=== PATIENT | male | born 1945 | race Caucasian/White ===

== ENCOUNTER 2023-12-18 16:30 | Inpatient (IN) | payer OTHER, SELFPAY ==
[2023-12-18] VITALS (48 sets, daily range): BP systolic 135–170; BP diastolic 73–94; PULSE 62–90; TEMP 36.8–36.9; O2SAT 90–98; BMI 26.8; BMI 26.9
--- NOTE | 2023-12-18 16:50 | XR_ITS ---
The [address] [address] Patient Name: CALOS BEAULIEU MRN: [id number] date: 1945 Sex: M Assigned Patient Location: ER Current Patient Location: ER Accession/Order Number: [id number] Exam Date: 12/18/2023 17:07 Report Date: 12/18/2023 18:42 At the request of: UMESH ABDUL Procedure: XR chest 1V EXAM: XR chest 1V , 12/18/2023 HISTORY: confusion COMPARISON: None. TECHNIQUE: Portable upright AP x-ray of the chest. FINDINGS: Cardiac silhouette within normal limits. No hilar or mediastinal enlargement. The lungs and costophrenic angles are clear. No acute osseous findings. XR/XR chest 1V IMPRESSION: No acute cardiopulmonary findings. Electronically authenticated by: TREE PATTERSON Date: 12/18/2023 18:42
--- NOTE | 2023-12-18 16:50 | CT_ITS ---
The [address] [address] Patient Name: CALOS BEAULIEU MRN: [id number] date: 1945 Sex: M Assigned Patient Location: ED.MAIN Current Patient Location: ER Accession/Order Number: [id number] Exam Date: 12/18/2023 17:35 Report Date: 12/18/2023 18:56 At the request of: UMESH ABDUL Procedure: CT angio head EXAM: CT angio head HISTORY: Frontal headache with visual changes started yesterday. COMPARISON: Head CT on 12/18/2023. TECHNIQUE: Axial CT scans of the head were obtained with IV contrast administration. MPR and MIP images images and 3-D reconstruction images were generated. FINDINGS: No large vessel occlusion or significant intracranial stenosis. No aneurysm. Dural venous sinuses are not completely opacified on this CTA. CT/CT angio head IMPRESSION: No large vessel occlusion or significant intracranial stenosis. Electronically authenticated by: SHAKEEL HERNADEZ Date: 12/18/2023 18:56
--- NOTE | 2023-12-18 16:50 | ECG_ITS ---
The [facility] Test Date: 2023-12-18 Pat Name: CALOS BEAULIEU Department: Room: - Gender: Male [employer]: : 1945 Requested By: TIFFANY CROUCH Order Number: [id number] Reading MD: LAVERN YUNG Measurements Intervals [place] Rate: 81 P: 52 CO: 142 QRS: -32 QRSD: 88 T: 38 QT: 342 QTc: 379 Interpretive Statements 1100 Sinus rhythm [address] depression 7200 Abnormal left axis deviation 9130 borderline ECG No previous ECG available for comparison Electronically Signed On 12-18-2023 18:38:41 EDT by LAVERN YUNG
--- NOTE | 2023-12-18 16:50 | CT_ITS ---
The [place] [id number] Patient Name: CALOS BEAULIEU MRN: [id number] date: 1945 Sex: M Assigned Patient Location: ER Current Patient Location: ER Accession/Order Number: [id number] Exam Date: 12/18/2023 17:06 Report Date: 12/18/2023 18:49 At the request of: UMESH ABDUL Procedure: CT head/brain wo con EXAM: CT head/brain wo con HISTORY: Frontal headache with visual changes started yesterday. TECHNIQUE: Axial CT scans through the head were obtained without IV contrast administration. Dose reduction techniques were achieved by using: automated exposure control and/or adjustment of mA and/or kV according to patient size and/or use of an iterative reconstruction technique. COMPARISON: None. FINDINGS: Moderate periventricular and subcortical low attenuation in the cerebral hemispheres without associated mass effect. A small 2.3 cortical area of slightly decreased attenuation with loss of cortical medullary differentiation in the right parietal lobe is indicative of an acute infarct. The brainstem and the cerebellum appear normal. The ventricular system and cortical sulci are prominent, secondary to cerebral volume loss. No area of abnormal mass effect, edema, or intracranial hemorrhage is shown. The visualized orbits show no abnormal mass. The visualized paranasal sinuses show no air-fluid level. Mastoid air cells are clear. CT/CT head/brain wo con IMPRESSION: A small 2.3 cm acute cortical infarct in the right parietal lobe without hemorrhage. Moderate old microvascular ischemic change and age-related cerebral atrophy. Dr. Abdul was notified of the critical results by myself at 6:47 PM. Electronically authenticated by: SHAKEEL HERNADEZ Date: 12/18/2023 18:49
--- NOTE | 2023-12-18 16:53 | ED_ITS ---
HPI HPI - General Adult General Chief complaint: Headache Stated complaint: HEADACHE Time Seen by Provider: 12/18/23 16:33 History of Present Illness HPI narrative: Patient presents to ED complaining of headache. He said it started last night and when he woke up this morning it was worse than it was last night. He denies any trauma. He does report that he had a history of migraines but he has not had one in a long time. The states she has been trying to get him to come to the ER all day because he has been very confused on and off today. She said he was trying to find his wallet and even though it was right in front of him he could not find it. When I was talking to him in the room he said he was having trouble getting his cards into the ashtray and saying other nonsensical things very intermittently but most of the time was making sense and was completely alert and oriented. Patient states the headache is in the front denies any sensitivity to light or sound. He denies any fall or trauma. Time of last known well was 11 PM last night. That is when the patient went to bed, and the and he states that he went to bed completely fine. They said he was fine yesterday. He does not usually have any periods of confusion like he has had on and off today. He denies any fevers. Related Data Home Medications ?Medication ?Instructions ?Recorded ?Confirmed sulindac 200 mg tablet mg 12/18/23 Allergies Allergy/AdvReac Type Severity Reaction Status Date / Time No Known Drug Allergies Allergy Verified 12/18/23 16:35 Opioid HPI Opioid Management Most Recent Opioid Data: No Data to Display Review of Systems ROS Status of ROS 10 or more systems reviewed and unremark able except as noted in history and below Exam Narrative Exam Narrative: Time Seen: [] Vital Signs: [Per nurse's notes.] General: [Alert] Skin: [Warm, dry, no rash.] Head: [Normocephalic, atraumatic.] Neck: [Supple, trachea midline.] Eye: [Pupils are equal, round and reactive to light, extraocular movements are intact, normal conjunctiva.] Ears, nose, mouth and throat: oral mucosa moist. Cardiovascular: [Regular rate and rhythm, no murmur.] Respiratory: [Lungs are clear to auscultation, respirations are non-labored, breath sounds are equal.] Chest wall: [No tenderness, no deformity.] Gastrointestinal: [Soft, nontender, non distended, normal bowel sounds.] MSK: 5 out of 5 muscle strength x 4 extremities no calf pain or edema Lymphatics: [No lymphadenopathy.] Psychiatric: [Cooperative, appropriate mood & affect.] Neurological: [Alert and oriented to person, place, time, and situation, no focal neurological deficit observed.] Constitutional Vital Signs, click to edit/add: Last Vital Signs Temp 98.5 F 12/18/23 16:35 Pulse 84 12/18/23 19:00 Resp 29 H 12/18/23 19:00 BP 141/94 H 12/18/23 19:00 Pulse Ox 98 12/18/23 19:00 Course Vital Signs Vital signs: Vital Signs Temperature 98.5 F 12/18/23 16:35 Pulse Rate 74 12/18/23 16:35 Respiratory Rate 18 12/18/23 16:35 Blood Pressure 170/92 H 12/18/23 16:35 Pulse Oximetry 98 12/18/23 16:35 Temperature 98.5 F 12/18/23 16:35 Pulse Rate 84 12/18/23 19:00 Respiratory Rate 29 H 12/18/23 19:00 Blood Pressure 141/94 H 12/18/23 19:00 Pulse Oximetry 98 12/18/23 19:00 Medical Decision Making [facility] Narrative Medical decision making narrative: NIH stroke scale: Date/Time: []12/18/2023, 4:50 PM Level of consciousness: _ 0 Current month and age: _0 Open and close eyes/recruiter specialist release hand: _0 Best gaze: _0 Visual field testing: _0 Facial paresis: _0 Motor function left arm: _0 Motor function right arm: _0 Motor function left leg: _0 Motor function right leg: _0 Limb ataxia: _0 Sensory: _0 Best language0: _ Dysarthria: _0 Extinction and inattention: _0 Total Score: [] 0(severe deficit > 22) Notes: []No thrombolytics given as patient is out of the time window for any thrombolytic therapy And his symptoms are very minor and intermittent. I spoke to neurology from [facility] and they reviewed the images. I was told patient is able to stay here at [place] after they reviewed the images. Aspirin was ordered. I spoke to Majo and patient will be admitted to ICU for further monitoring. Patient and family are comfortable care plan for admission Differential Diagnosis Differential Diagnosis: Hemorrhagic stroke, stroke, migraine headache, electrolyte abnormality, Medical Records Medical records reviewed: Yes I reviewed the patient's medical records Lab Data Lab results reviewed: Yes I reviewed the patient's lab results Labs: Lab Results 12/18/23 12/18/23 Range/Units 16:43 18:26 WBC 9.9 (4.0-11.0) 10^3/uL RBC 5.05 (4.70-6.10) 10^6/uL Hgb 16.5 (14.0-18.0) g/dL Hct 46.9 (42.0-54.0) % MCV 92.9 (80.0-94.0) fL MCH 32.7 (25.9-34.0) pg MCHC 35.2 (29.9-35.2) g/dL RDW 11.5 (11.0-15.0) % Plt Count 198 (150-450) 10^3/uL MPV 10.9 (9.5-13.5) fL Neut % (Auto) 80.7 H (43.0-75.0) % Lymph % (Auto) 12.6 L (20.5-60.0) % Mcdonough % (Auto) 5.9 (1.7-12.0) % Eos % (Auto) 0.1 L (0.9-7.0) % Baso % (Auto) 0.4 (0.2-2.0) % Neut # (Auto) 8.0 H (1.4-6.5) 10^3/uL Lymph # (Auto) 1.3 (1.2-3.8) 10^3/uL Mcdonough # (Auto) 0.6 (0.3-0.8) 10^3/uL Eos # (Auto) 0.0 (0.0-0.7) 10^3/uL Baso # (Auto) 0.0 (0.0-0.1) 10^3/uL Abs Immat Gran (auto) 0.03 (0.00-0.03) 10^3/uL Imm/Tot Granulo (auto) 0.3 (0.0-0.5) % PT 10.8 (9.0-11.6) sec INR 1.02 Sodium 136 (136-145) mmol/L Potassium 4.2 (3.5-5.1) mmol/L Chloride 103 (98-107) mmol/L Carbon Dioxide 25.9 (21.0-32.0) mmol/L Anion Gap 11.3 BUN 12.0 (7.0-18.0) mg/dL Creatinine 0.87 (0.70-1.30) mg/dL Est GFR ( Amer) >60 (>=60) Est GFR (Non-Af Amer) >60 (>=60) BUN/Creatinine Ratio 13.8 Glucose 129 H (74-106) mg/dL Calcium 8.7 (8.5-10.1) mg/dL Total Bilirubin 0.9 (0.2-1.0) mg/dL AST 16 (15-37) U/L ALT 19 (16-63) U/L Alkaline Phosphatase 77 (46-116) U/L Troponin I High Sens 5.8 (4.0-76.1) pg/mL Total Protein 7.6 (6.4-8.2) g/dL Albumin 3.8 (3.4-5.0) g/dL Globulin 3.8 g/dL Albumin/Globulin Ratio 1.0 Urine Color Yellow (YELLOW) Urine Clarity Clear (CLEAR) Urine pH 7.0 (5.0-9.0) Ur Specific [place] 1.010 (1.005-1.025) Urine Protein Negative (NEG/TRACE) mg/dL Urine Glucose (UA) Negative (NEGATIVE) mg/dL Urine Ketones Trace A (NEGATIVE) mg/dL Urine Occult Blood Negative (NEGATIVE) Urine Nitrite Negative (NEGATIVE) Urine Bilirubin Negative (NEGATIVE) Urine Urobilinogen 0.2 (0.2-1.0) EU/dL Ur Leukocyte Esterase Negative (NEGATIVE) Imaging Data CT scan - head: Radiologist's impression: ITS Impressions Chest X-Ray 12/18/23 16:50 IMPRESSION: No acute cardiopulmonary findings. Electronically authenticated by: TREE PATTERSON Date: 12/18/2023 18:[address] 12/18/23 16:50 IMPRESSION: A small 2.3 cm acute cortical infarct in the right parietal lobe without hemorrhage. Moderate old microvascular ischemic change and age-related cerebral atrophy. Dr. Acevedo was notified of the critical results by myself at 6:47 PM. Electronically authenticated by: SHAKEEL HERNADEZ Date: 12/18/2023 18:49 Head CTA 12/18/23 16:50 IMPRESSION: No large vessel occlusion or significant intracranial stenosis. Electronically authenticated by: SHAKEEL HERNADEZ Date: 12/18/2023 18:56 ECG Data Attestation: I personally reviewed and interpreted this ECG as follows: Interpretation: EKG INTERPRETATION Time: []1645 Rate: []81 Rhythm: _ []Normal sinus rhythm ST segments: _ []No acute ST elevation or depression T waves: _ [] Ectopy: _ [] P wave/MS interval: _ [] QRS interval: _ [] QT interval: _ [] Comparison: _ [] Comparison EKG date: [] Performed by: [self] Critical Care Time Critical Care Time Critical Care Time: Yes Total Critical Care Time: 85 Attestation: Acute stroke Discharge Plan Discharge Chief Complaint: Headache Time of Disposition Decision: 19:15 Prescriptions / Home Meds: No Action sulindac 200 mg tablet Print Language: Lao
[2023-12-18 16:57] LABS: Basophils Percent Auto 0.4 % (0.2-2.0); Eosinophils Percent Auto 0.1 % (0.9-7.0); Hematocrit 46.9 % (42.0-54.0); Hemoglobin 16.5 g/dL (14.0-18.0); Immature Granulocytes Abs Auto 0.03 10^3/uL (0.00-0.03); Immature Granulocytes Pct Auto 0.3 % (0.0-0.5); Lymphocytes Absolute Auto 1.3 10^3/uL (1.2-3.8); Lymphocytes Percent Auto 12.6 % (20.5-60.0); Mean Corpuscular HGB Conc 35.2 g/dL (29.9-35.2); Mean Corpuscular Hemoglobin 32.7 pg (25.9-34.0); Mean Corpuscular Volume 92.9 fL (80.0-94.0); Mean Platelet Volume 10.9 fL (9.5-13.5); Monocytes Absolute Auto 0.6 10^3/uL (0.3-0.8); Monocytes Percent Auto 5.9 % (1.7-12.0); Neutrophils Percent Auto 80.7 % (43.0-75.0); Platelet Count 198 10^3/uL (150-450); Red Blood Count 5.05 10^6/uL (4.70-6.10); Red Cell Distribution Width 11.5 % (11.0-15.0); White Blood Count 9.9 10^3/uL (4.0-11.0)
[2023-12-18 17:11] LABS: INR 1.02; Prothrombin Time 10.8 sec (9.0-11.6)
[2023-12-18 17:16] LABS: Alanine Aminotransferase 19 U/L (16-63); Albumin Level 3.8 g/dL (3.4-5.0); Alkaline Phosphatase 77 U/L (46-116); Anion Gap 11.3; Aspartate Amino Transferase 16 U/L (15-37); BUN Creatinine Ratio 13.8; Bilirubin Total 0.9 mg/dL (0.2-1.0); Calcium 8.7 mg/dL (8.5-10.1); Carbon Dioxide 25.9 mmol/L (21.0-32.0); Chloride 103 mmol/L (98-107); Estimated GFR (African America >60 (>=60); Estimated GFR (Non-African Ame >60 (>=60); Globulin 3.8 g/dL; Glucose 129 mg/dL (74-106); Potassium 4.2 mmol/L (3.5-5.1); Sodium 136 mmol/L (136-145); Total Protein 7.6 g/dL (6.4-8.2); Troponin I High Sensitivity 5.8 pg/mL (4.0-76.1)
[2023-12-18 18:47] LABS: Bilirubin Urine NEGATIVE (NEGATIVE); Blood Urine NEGATIVE (NEGATIVE); Clarity Urine CLEAR (CLEAR); Color Urine YELLOW (YELLOW); Glucose Urine UA NEGATIVE (NEGATIVE); Ketones Urine TRACE mg/dL (NEGATIVE); Leukocyte Esterase Urine NEGATIVE (NEGATIVE); Nitrite Urine NEGATIVE (NEGATIVE); Protein Urine NEGATIVE (NEG/TRACE); Urobilinogen Urine 0.2 EU/dL (0.2-1.0)
[2023-12-18 18:48] LABS: Urine Microscopic Indicated NO
[2023-12-18] MEDS: ASPIRIN 81 MG TAB.CHEW 324 MG PO (18:59)
[2023-12-18] MEDS: ENOXAPARIN SODIUM 40 MG/0.4 ML SYRINGE SUBQ (21:44)
[2023-12-18] MEDS: ATORVASTATIN CALCIUM 40 MG TABLET PO (21:44)
[2023-12-18] MEDS: ACETAMINOPHEN 500 MG TABLET 1000 MG PO (21:45)
[2023-12-18] MEDS: OMEPRAZOLE 20 MG CAPSULE.DR PO (21:48)
[2023-12-18 21:57] LABS: Glucometer 150 mg/dL (74-106)
[2023-12-19] VITALS (74 sets, daily range): BP systolic 117–168; BP diastolic 71–89; PULSE 55–96; TEMP 36.6–36.8; O2SAT 91–95
[2023-12-19 06:43] LABS: Basophils Percent Auto 0.5 % (0.2-2.0); Eosinophils Absolute Auto 0.1 10^3/uL (0.0-0.7); Eosinophils Percent Auto 0.9 % (0.9-7.0); Hematocrit 42.7 % (42.0-54.0); Immature Granulocytes Abs Auto 0.02 10^3/uL (0.00-0.03); Immature Granulocytes Pct Auto 0.3 % (0.0-0.5); Lymphocytes Absolute Auto 1.6 10^3/uL (1.2-3.8); Lymphocytes Percent Auto 25.3 % (20.5-60.0); Mean Corpuscular HGB Conc 35.1 g/dL (29.9-35.2); Mean Corpuscular Hemoglobin 32.5 pg (25.9-34.0); Mean Corpuscular Volume 92.6 fL (80.0-94.0); Mean Platelet Volume 11.4 fL (9.5-13.5); Monocytes Absolute Auto 0.8 10^3/uL (0.3-0.8); Monocytes Percent Auto 12.6 % (1.7-12.0); Neutrophils Absolute Auto 3.9 10^3/uL (1.4-6.5); Neutrophils Percent Auto 60.4 % (43.0-75.0); Platelet Count 165 10^3/uL (150-450); Red Blood Count 4.61 10^6/uL (4.70-6.10); Red Cell Distribution Width 11.7 % (11.0-15.0); White Blood Count 6.5 10^3/uL (4.0-11.0)
[2023-12-19 07:18] LABS: Partial Thromboplastin Time 29.5 sec (22.3-36.2)
--- NOTE | 2023-12-19 08:22 | CA_ITS ---
Patient Name: CALOS BEAULIEU MR#: [id number] : 1945 Exam Date: 12/19/2023 Ordering Doctor: DR Ozzy Chavez . ECHOCARDIOGRAM REPORT PROCEDURE: CA ECHO DOPPLER COMPLETE INDICATIONS: Stroke COMPARISON: None. DESCRIPTION: COMPLETE ECHOCARDIOGRAM Real-time transthoracic echocardiography with 2D, M-mode, spectral and color flow Doppler performed. QUALITY: Technical quality was good. LEFT VENTRICLE: Normal chamber size. Moderate concentric left ventricular hypertrophy. Global left ventricular systolic function is normal. LV EF: Estimated left ventricular ejection fraction is 60%. DIASTOLIC: Diastolic function is indeterminate. ATRIAL SEPTUM: Agitated saline contrast does not reveal an intra-cardiac shunt. LEFT ATRIUM: Normal chamber size. RIGHT ATRIUM: Mild dilatation. RIGHT VENTRICLE: Normal chamber size. Normal right ventricular systolic function. TRICUSPID VALVE: Normal mobility and thickness. No stenosis with trivial regurgitation. Mild pulmonary hypertension. RVSP 35 mmHg. MITRAL VALVE: Normal mobility and thickness. No evidence of mitral valve stenosis. There is no mitral annular calcification. Trivial mitral regurgitation. AORTIC VALVE: Normal trileaflet appearance. No visible sclerosis. Normal leaflet mobility. No evidence of aortic valve stenosis. No aortic regurgitation. AORTIC ROOT: Normal diameter and appearance. PULMONIC VALVE: Normal thickness and mobility. No stenosis. Trivial regurgitation. PERICARDIUM: No evidence of pericardial effusion. IVC: Collapses with inspirations. Normal size. PLEURA: CONCLUSION: 1. Moderate concentric left ventricular hypertrophy with normal systolic function. LVEF is 60%. 2. Normal right ventricular size and systolic function. 3. No significant valvular dysfunction. 4. Mildly elevated right-sided pressures. 5. No evidence of intracardiac shunt by agitated saline injection. Adult Echocardiography Procedure Report Left Ventricle LVEDD (3.7 - 5.6 cm): 4.74 cm LVESD (2.2 - 4.0 cm): 3.15 cm LVIVS thickness (0.6 - 1.2 cm): 1.38 cm LVPW thickness (0.5 - 1.0 cm): 1.35 cm e': 0.10 m/s E - e': 5.96 LVOT Max Gradient: 3.52 mm[Hg] LVOT Area (cm2): 0.94 m/s Peak Velocity (LVOT): 0.94 m/s Mean Velocity (LVOT): 0.65 m/s LVOT Diameter 2.36 cm Left Ventricular Ejection Fraction: 60 % Left Atrium LA Volume Index (2D A2C): 29.30 ml/m2 Left Atrium Systolic Dimension: 4.15 cm Mitral Valve MV E to A Ratio: 0.69 Mitral Valve A-Wave Peak Velocity: 0.82 m/s Mitral Valve E-Wave Peak Velocity: 0.57 m/s Right Ventricle RV Internal Diastolic Dimension: 3.81 cm Aorta AO Root Diam: 3.03 cm Ascending Ao Diam: 2.82 cm Aortic Valve AoV Area (Peak Jamie): 2.68 cm2, 2.68 cm2 AoV Area (VTI): 3.14 cm2, 3.14 cm2 Peak Velocity(Antegrade Flow): 1.53 m/s Peak Gradient(Antegrade Flow): 9.36 mm[Hg] Mean Velocity(Antegrade Flow): 0.95 m/s Mean Gradient(Antegrade Flow): 4.30 mm[Hg] Velocity Time Integral: 27.23 cm Tricuspid Valve Peak Velocity (Regurgitant Flow): 2.61 m/s, 2.80 m/s Pulmonic Valve Mean Gradient: 2.64 mm[Hg] Mean Velocity: 0.79 m/s Peak Velocity: 1.02 m/s, 0.84 m/s Peak Gradient: 2.81 mm[Hg], 4.20 mm[Hg] Right Atrium Right Atrium Systolic Pressure: 40.47 ml, 40.47 ml Dictated by: Lonnie Negro M.D. on 12/19/2023 at 17:56 Approved by: Lonnie Negro M.D. on 12/19/2023 at 17:59
--- NOTE | 2023-12-19 08:22 | US_ITS ---
[address] [address] Patient Name: CALOS BEAULIEU MRN: [id number] date: 1945 Sex: M Assigned Patient Location: ICU Current Patient Location: ICU Accession/Order Number: [id number] Exam Date: 12/19/2023 08:23 Report Date: 12/19/2023 09:48 At the request of: JOSE CHAHAL Procedure: US carotid duplex BI EXAMINATION: US carotid duplex BI HISTORY: Stroke COMPARISON: No relevant comparison available. TECHNIQUE: Duplex Doppler ultrasound analysis of carotid and vertebral arteries. . Bilateral carotid arterial duplex examination was performed using B-mode, color flow and spectral analysis. Carotid stenosis is reported according to validated velocity parameters, similar to NASCET criteria. FINDINGS: RIGHT CAROTID ARTERY mild atherosclerotic plaque Subclavian: 147.63 cm/s / 0 cm/s CCA: Prox: 125.90 cm/s / 15.56 cm/s Mid: 98.30 cm/s / 15.56 cm/s Distal: 110.12 cm/s / 15.56 cm/s BULB: 78.56 cm/s / 15.55 cm/s ICA: Prox: 104.85 cm/s / 19.22 cm/s Mid: 111.31 cm/s / 19.22 cm/s Distal: 149.61 cm/s / 17.54 cm/s ECA: 104.22 cm/s / 3.74 cm/s VERTEBRAL: 72.63 cm/s / 15.55 cm/s, antegrade ICA/CCA ratio: 1.4 LEFT CAROTID ARTERY mild atherosclerotic plaque Subclavian: 137 cm/s / 11 cm/s CCA: Prox: 108.96 cm/s / 18.35 cm/s Mid: 111.23 cm/s / 18.35 cm/s Distal: 94.92 cm/s / 18.33 cm/s BULB: 74.15 cm/s / 14.38 cm/s ICA: Prox: 55.92 cm/s / 10.88 cm/s Mid: 77.89 cm/s / 19.67 cm/s Distal: 80.09 cm/s / 14.17 cm/s ECA: 69.08 cm/s / 6.48 cm/s VERTEBRAL: 65.79 cm/s / 8.68 cm/s, antegrade ICA/CCA ratio: 0.8 US/US carotid duplex BI IMPRESSION: 0-49% flow stenosis, bilateral internal carotid arteries Spectral Doppler US Thresholds (Reference: Flip EG, et al. Radiology 2000; 214:247-252) Stenosis (%) PSV (cm/sec) VICA/VCCA 0-49 <150 <2.5 50-69 150-225 2.5-4.0 >70 >225 >4.0 Electronically authenticated by: JARON AUGUSTE Date: 12/19/2023 09:48
--- NOTE | 2023-12-19 08:22 | MR_ITS ---
The [address] [address] Patient Name: CALOS BEAULIEU MRN: [id number] date: 1945 Sex: M Assigned Patient Location: ICU Current Patient Location: ICU Accession/Order Number: [id number] Exam Date: 12/19/2023 10:45 Report Date: 12/19/2023 11:33 At the request of: JOSE CHAHAL Procedure: MR head/brain wo con EXAM: MR head/brain wo con HISTORY: Stroke COMPARISON: CT head 12/18/2023. TECHNIQUE: Multiplanar multisequence MR imaging of the brain was performed without intravenous contrast. FINDINGS: Calvarium/skull base: No focal marrow replacing lesion suggestive of neoplasm. Orbits: Bilateral kw[place]luk ocular lens replacements. Paranasal sinuses: Imaged portions clear Brain: The previously identified area of hypodensity with loss of beatty-white differentiation involving the high posterior right parietal lobe corresponds to area of restricted diffusion with additional more punctate foci of restricted diffusion involving the posterior centrum semiovale white matter and cortical margin along the more posterior right parietal lobe. An additional punctate focus of restricted diffusion involving the cortical margin along the anterior aspect of the right precentral gyrus. There is mild associated T2 FLAIR hyperintensity. Tiny area of remote cortical infarct involving the right middle frontal gyrus. Moderate T2 FLAIR signal hyperintensities are present involving the supratentorial white matter likely relating to sequela small vessel disease. Mild to moderate parenchymal volume loss. No mass effect, hemorrhage, or hydrocephalus. Grossly normal flow-related signal in the major intracranial arteries and dural sinuses. MR/MR head/brain wo con IMPRESSION: 1. Acute infarct involving the right MCA distribution with the largest area of involvement along the cortical margin of the right parietal lobe corresponding area of hypodensity in recent CT. Punctate focus of involvement along the anterior cortical margin of the right precentral gyrus. 2. Additional small areas of remote infarct involving the supratentorial brain with superimposed moderate supratentorial white matter change which most commonly relates to sequela small vessel disease. Report was submitted to the clinical operation support team for expedited review by the provider. Electronically authenticated by: JERRI RIDDLE Date: 12/19/2023 11:33
[2023-12-19] MEDS: ACETAMINOPHEN 500 MG TABLET 1000 MG PO ×2 (08:45→17:21)
[2023-12-19] MEDS: OMEPRAZOLE 20 MG CAPSULE.DR PO (08:45)
[2023-12-19] MEDS: ASPIRIN 81 MG TABLET.DR PO (08:46)
[2023-12-19 09:52] LABS: Alanine Aminotransferase 16 U/L (16-63); Albumin Globulin Ratio 0.9; Albumin Level 3.2 g/dL (3.4-5.0); Alkaline Phosphatase 68 U/L (46-116); Anion Gap 11.6; Aspartate Amino Transferase 14 U/L (15-37); BUN Creatinine Ratio 12.3; C Reactive Protein 0.65 mg/dL (<=0.50); Calcium 8.3 mg/dL (8.5-10.1); Carbon Dioxide 25.3 mmol/L (21.0-32.0); Chloride 104 mmol/L (98-107); Chol HDL Ratio 5.1; Cholesterol 182 mg/dL (<=200); Estimated GFR (African America >60 (>=60); Estimated GFR (Non-African Ame >60 (>=60); Globulin 3.5 g/dL; Glucose 116 mg/dL (74-106); HDL Cholesterol 36 mg/dL (40-60); Magnesium 2.1 mg/dL (1.8-2.4); Potassium 3.9 mmol/L (3.5-5.1); Sodium 137 mmol/L (136-145); Total Protein 6.7 g/dL (6.4-8.2); Triglycerides 155 mg/dL (<=150); Troponin I High Sensitivity 5.6 pg/mL (4.0-76.1)
--- NOTE | 2023-12-19 10:34 | PM.HP ---
HPI H&P: HPI History of Present Illness Chief complaint: HEADACHE, STROKE Narrative: 78 y/o male to ER with a severe REED. REED started night prior and more intense in am. As day progressed patient's noticed confusion off and on. REED persisted and to ER. Labs and UA normal. Chest x-ray normal. CT head showed acute infarct in parietal lobe. CTA without significant stenosis. ER discussed with neurology who recommended admission and work up. Opioid HPI Opioid Management Most Recent Pain and Opioid Data: Last Pain Scale 10 12/19/23 08:45 Last Pain Assessment 12/19/23 10:00 Last MAR Pain Assessment 12/19/23 08:45 Last ORT Total Score 0 12/18/23 21:01 Last ORT Risk Category Low Risk 12/18/23 21:01 Review of Systems ROS Constitutional Denies: fever, chills or fatigue Cardiovascular Denies: chest pain, palpitations or edema Respiratory Denies: shortness of breath, cough or wheezing Gastrointestinal Denies: abdominal pain, nausea, vomiting or diarrhea Genitourinary Denies: painful urination Neurological Reports: headache and confusion PFSH PFSH Medical History (Updated 12/19/23 @ 08:09 by Ozzy Chavez MD) Stroke ?I63.9 - Cerebral infarction, unspecified (ICD-10) Rotator cuff insufficiency of right shoulder ?M25.311 - Other instability, right shoulder (ICD-10) Surgical History (Updated 12/18/23 @ 21:35 by Erica Uriarte) H/O knee surgery ?Z98.890 - Other specified postprocedural states (ICD-10) H/O shoulder surgery ?Z98.890 - Other specified postprocedural states (ICD-10) Social History (Updated 12/18/23 @ 21:37 by Erica Uriarte) Within the past year, how often did you have a drink containing alcohol: 2-4 times a month Within the past year, how often did you have six or more drinks on one occasion: never Smoking status: Never smoker Non-prescribed substance use: denies use Highest level of school completed/degree received: 9th grade Are you now , , , , never or living with a partner: Little interest or pleasure in doing things: not at all Feeling down, depressed, or hopeless: not at all Feel stressed/tense/nervous/anxious/difficulty sleeping: not at all Do you think of yourself as: straight/heterosexual Gender Identity: male Meds Home Medications and Allergies Home Medications ?Medication ?Instructions ?Recorded ?Confirmed ?Type sulindac 200 mg tablet 200 mg PO BID PRN pain 12/18/23 12/19/23 History tamsulosin 0.4 mg capsule 0.4 mg PO .QHS 12/19/23 History Allergies Allergy/AdvReac Type Severity Reaction Status Date / Time No Known Drug Allergies Allergy Verified 12/18/23 16:35 Exam Constitutional Vital Signs, click to edit/add: Last Vital Signs Temp 97.8 F 12/19/23 05:10 Pulse 70 12/19/23 10:00 Resp 17 12/19/23 07:08 BP 143/89 H 12/19/23 07:17 Pulse Ox 95 12/19/23 05:10 O2 Del Method Room Air 12/18/23 21:01 Documenting provider has reviewed patient's vital signs: yes Common normals: no apparent distress, oriented x3 and alert HENMT Common normals: normocephalic Eye Common normals: PERRL and EOMs intact bilaterally Respiratory Common normals: normal respiratory effort and clear to auscultation bilaterally Cardio Common normals: regular rate, regular rhythm, no gallops, no murmurs and no rub GI Common normals: Normal to inspection, nondistended, normoactive bowel sounds present and non-tender Extremity Common normals: no pedal edema Neuro Common normals: CN's II-XII intact bilaterally, moves all extremities, no focal motor deficits and gait normal Motor exam: strength 5/5 throughout Results Labs Labs: Short CBC 12/18/23 12/19/23 Range/Units 16:43 05:45 WBC 9.9 6.5 (4.0-11.0) 10^3/uL Hgb 16.5 15.0 (14.0-18.0) g/dL Hct 46.9 42.7 (42.0-54.0) % Plt Count 198 165 (150-450) 10^3/uL BMP 12/18/23 12/19/23 16:43 05:45 Sodium 136 137 Potassium 4.2 3.9 Chloride 103 104 Carbon Dioxide 25.9 25.3 BUN 12.0 10.0 Creatinine 0.87 0.81 Glucose 129 H 116 H Calcium 8.7 8.3 L Liver Function 12/18/23 12/19/23 Range/Units 16:43 05:45 Total Bilirubin 0.9 1.0 (0.2-1.0) mg/dL AST 16 14 L (15-37) U/L ALT 19 16 (16-63) U/L Alkaline Phosphatase 77 68 (46-116) U/L Albumin 3.8 3.2 L (3.4-5.0) g/dL Urine 12/18/23 Range/Units 18:26 Urine Color Yellow (YELLOW) Urine Clarity Clear (CLEAR) Urine pH 7.0 (5.0-9.0) Ur Specific [place] 1.010 (1.005-1.025) Urine Protein Negative (NEG/TRACE) mg/dL Urine Glucose (UA) Negative (NEGATIVE) mg/dL Assessment and Plan Assessment and Plan (1) Infarction of parietal lobe: (2) Benign essential hypertension: (3) High cholesterol: Plan Acute stroke on CT and MRI ordered. Carotid US without stenosis. Echo ordered with agitated saline. Added lipitor and aspirin. Will have tele-neurology consult after MRI results available. Consult speech, PT, and OT. Patient lucid at time of exam but nursing reports episodes of confusion off and on this am.
--- NOTE | 2023-12-19 10:41 | SWNOTE1 ---
SW met with pt to discuss dc needs. Pt was sitting in chair with towel on his head. Pt voiced his headache seems to be getting a little better. Pt live at home with his . 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 Pt does not use any DME at home currently, but has a walker if needed. Pt waiting to get an MRI completed and also to work with PT/OT. SW to check therapy notes to determine dc needs.
--- NOTE | 2023-12-19 10:41 | CM.NOTE ---
10:[address] Chavez discussed labs, Carotid US results and plan for MRI today and Pt/OT evals and neurology consult. Pawel verbalized understanding. 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 No plans for discharge today.
--- NOTE | 2023-12-19 10:52 | SWNOTE1 ---
Important Message from Medicare reviewed and discussed with patient. Pt. verbalized understanding and signed the form. Original given to patient and copy placed in patient?s chart.
--- NOTE | 2023-12-19 13:43 | SWNOTE1 ---
SW checked therapy and pt did well, no HH or SNF recommended.
[2023-12-19] MEDS: ATORVASTATIN CALCIUM 40 MG TABLET PO (21:31)
[2023-12-19] MEDS: ENOXAPARIN SODIUM 40 MG/0.4 ML SYRINGE SUBQ (21:31)
[2023-12-20] VITALS (7 sets, daily range): BP systolic 163; BP diastolic 81; PULSE 57–78; TEMP 36.7; O2SAT 92–94
[2023-12-20 06:22] LABS: Basophils Percent Auto 0.5 % (0.2-2.0); Eosinophils Absolute Auto 0.1 10^3/uL (0.0-0.7); Hematocrit 44.6 % (42.0-54.0); Hemoglobin 15.6 g/dL (14.0-18.0); Immature Granulocytes Abs Auto 0.01 10^3/uL (0.00-0.03); Immature Granulocytes Pct Auto 0.2 % (0.0-0.5); Lymphocytes Absolute Auto 1.6 10^3/uL (1.2-3.8); Lymphocytes Percent Auto 27.2 % (20.5-60.0); Mean Corpuscular Hemoglobin 32.4 pg (25.9-34.0); Mean Corpuscular Volume 92.7 fL (80.0-94.0); Mean Platelet Volume 11.2 fL (9.5-13.5); Monocytes Absolute Auto 0.7 10^3/uL (0.3-0.8); Monocytes Percent Auto 11.4 % (1.7-12.0); Neutrophils Absolute Auto 3.6 10^3/uL (1.4-6.5); Neutrophils Percent Auto 59.7 % (43.0-75.0); Platelet Count 171 10^3/uL (150-450); Red Blood Count 4.81 10^6/uL (4.70-6.10); Red Cell Distribution Width 11.5 % (11.0-15.0)
[2023-12-20 06:27] LABS: Anion Gap 7.7; Calcium 8.4 mg/dL (8.5-10.1); Carbon Dioxide 27.1 mmol/L (21.0-32.0); Chloride 104 mmol/L (98-107); Estimated GFR (African America >60 (>=60); Estimated GFR (Non-African Ame >60 (>=60); Glucose 108 mg/dL (74-106); Potassium 3.8 mmol/L (3.5-5.1); Sodium 135 mmol/L (136-145)
[2023-12-20 06:37] LABS: Estimated Average Glucose 117 mg/dL; Glycohemoglobin A1C 5.7 % (4.5-6.2)
[2023-12-20] MEDS: ASPIRIN 81 MG TABLET.DR PO (08:40)
[2023-12-20] MEDS: OMEPRAZOLE 20 MG CAPSULE.DR PO (08:40)
--- NOTE | 2023-12-20 11:16 | P.DS_ITS ---
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 78 y/o male to ER with a severe REED. REED started night prior and more intense in am. As day progressed patient's noticed confusion off and on. REED persisted and to ER. Labs and UA normal. Chest x-ray normal. CT head showed acute infarct in parietal lobe. CTA without significant stenosis. ER discussed with neurology who recommended admission and work up. Hospital course: Started lipitor and aspirin. Evaluated by PT/OT and speech. MRI showed CVA in right MCA distribution. Carotids negative for stenosis. Echo showed LVH but normal EF and no intracardiac shunt. A1C 5.7 and prediabetes. Tele-neurology recommended monitor and will send to patient. Recommend outpatient speech therapy and PCP will need to arrange. Discharged home in stable condition. Stop pravachol and start lipitor. Continue aspirin and other medication as directed. Follow up with PCP in 1-2 weeks. Time Spent with Patient Time attestation: Total time spent providing and/or coordinating discharge services: Time spent: greater than 30 minutes Exam Constitutional Vital Signs, click to edit/add: Last Vital Signs Temp 98.1 F 12/20/23 06:00 Pulse 78 12/20/23 10:00 Resp 16 12/20/23 08:00 BP 163/81 H 12/20/23 06:00 Pulse Ox 94 L 12/20/23 10:50 O2 Del Method Room Air 12/20/23 10:50 Documenting provider has reviewed patient's vital signs: yes Common normals: no apparent distress, oriented x3 and alert HENMT Common normals: normocephalic Eye Common normals: PERRL and EOMs intact bilaterally Respiratory Common normals: normal respiratory effort and clear to auscultation bilaterally Cardio Common normals: regular rate, regular rhythm, no gallops, no murmurs and no rub GI Common normals: Normal to inspection, nondistended, normoactive bowel sounds present and non-tender Extremity Common normals: no pedal edema DS: Data Data Completed and Pending Labs on day of discharge: Labs from last 24 hours 12/20/23 05:36 WBC 6.0 RBC 4.81 Hgb 15.6 Hct 44.6 MCV 92.7 MCH 32.4 MCHC 35.0 RDW 11.5 Plt Count 171 MPV 11.2 Neut % (Auto) 59.7 Lymph % (Auto) 27.2 [place] % (Auto) 11.4 Eos % (Auto) 1.0 Baso % (Auto) 0.5 Neut # (Auto) 3.6 Lymph # (Auto) 1.6 [place] # (Auto) 0.7 Eos # (Auto) 0.1 Baso # (Auto) 0.0 Abs Immat Gran (auto) 0.01 Imm/Tot Granulo (auto) 0.2 Sodium 135 L Potassium 3.8 Chloride 104 Carbon Dioxide 27.1 Anion Gap 7.7 BUN 12.0 Creatinine 0.80 Est GFR ( Amer) >60 Est GFR (Non-Af Amer) >60 BUN/Creatinine Ratio 15.0 Glucose 108 H Estimat Average Glucose 117 Hemoglobin A1c 5.7 Calcium 8.4 L Discharge Plan Discharge Disposition: Home, Self-Care Condition: Fair Discharge Medications: New aspirin 81 mg Tablet,Delayed Release (Dr/Ec) 81 mg PO QD Qty: 30 0RF atorvastatin 40 mg Tablet 40 mg PO QHS Qty: 30 0RF Continued sulindac 200 mg tablet 200 mg PO BID PRN (Reason: pain) tamsulosin 0.4 mg capsule 0.4 mg PO .QHS Activity: increase activity as tolerated Diet: advance to your usual diet Print Language: [place] Patient Instructions: Aspirin (By mouth), Atorvastatin (By mouth), Ischemic Stroke (GEN) Forms: Portal Instructions Follow Up Appointments: Follow up with [facility] in 2 weeks with repeat ca rotid ultrasound (They will contact you with date and time)
--- NOTE | 2023-12-20 11:25 | CM.NOTE ---
10:[address] Ch[address]. [address] Chavez discussed test results with Pawel and that he will need to take an ASA a day and that he is changing Pawel's cholesterol med. Dr. Chavez also discussed his A1C results and prediabetes and recommended he followup with his PCP for this. Pawel verbalized understanding. Plan is for discharge today.
--- NOTE | 2023-12-23 13:32 | CM.DCFOLLOWU ---
Person spoke with: patient's How are you feeling? well How is your pain? none Did you understand your discharge instructions? yes Do you have any questions about your discharge instructions? no Were you given any prescriptions at discharge? yes Were you able to get your prescriptions filled? yes Do you understand how to take your medications as ordered? yes Do you have any questions about your follow up appointment and do you plan to keep your follow up appointment? no questions, waiting for phone call with date and time for follow up apt. Is there anything else that you would like to discuss? no Questions/Comments/Concerns/Other: none
== END 2023-12-20 11:15 | disposition home or self-care (01) | DRG 66 ==
LOC: ER 19:15 → ICU 20:41 → MS 12-19 15:50
PROVIDERS: Registered Nurse; Admitting Provider Family Medicine; Emergency Provider Emergency Medicine; PCP Internal Medicine; Visit Provider Family Medicine
DX: I63.9 Cerebral infarction, unspecified (principal); I10 Essential (primary) hypertension; E78.00 Pure hypercholesterolemia, unspecified; R73.03 Prediabetes; R41.0 Disorientation, unspecified
CPT/HCPCS: 36415; 70450; 70496; 70551; 71045; 80048; 80053; 80061; 81003; 82948; 83036; 83735; 83880; 84100; 84484; 85025; 85610; 85730; 86140; 92523; 93005; 93306; 93880; 94761; 96372; 97161; 97165; 99285; J1650; Q3014; Q9967